=== PATIENT | male | born 1960 | race Caucasian/White ===

== ENCOUNTER 2017-06-29 14:15 | Emergency (ER) | payer BC ==
[~2017-06-29] VITALS: Ht 185.4 cm; Wt 104.3 kg
[~2017-06-29 14:15] MED LIST: ATENOLOL50 MG PO; ATORVASTATIN CA10 MG PO; GABAPENTIN300 MG PO; LEVOTHYROXINE50 MCG PO; METFORMIN HCL500 M2 PO
[2017-06-29] MEDS ORDERED: IBUPROFEN 600 MG TAB PO ONE (15:01)
--- NOTE | 2017-06-29 15:25 | Diagnostic Imaging Report ---
Exam: Left knee 3 views, ankle 3 views, foot 3 views and left tibia 2 views History: Pain Comparison: None. Findings: No acute fracture. Degenerative arthrosis of the knee most prominent involving the lateral tibiofemoral compartment. Fragmentation of the superior patella osteophyte. Ankle and foot joints intact. Hammertoes. Small dorsal and plantar calcaneal enthesophytes. Impression: No acute osseous abnormality Signed by: Dr. Garrett Gurrola M.D. on 06/29/2017 3:18 PM
== END 2017-06-29 17:12 | disposition home or self-care (01) ==
LOC: ER 14:15
PROC: 2W3RX1Z Immobilization of Left Lower Leg using Splint (ICD-10-PCS; principal; 2017-06-29)
DX: S93.492A Sprain of other ligament of left ankle, initial encounter (principal); X50.1XXA Overexertion from prolonged static or awkward postures, initial encounter; Y92.008 Other place in unspecified non-institutional (private) residence as the place of occurrence of the external cause; E78.5 Hyperlipidemia, unspecified; G62.9 Polyneuropathy, unspecified
CPT/HCPCS: 99284